=== PATIENT | male | born 1965 | race Caucasian/White ===

== ENCOUNTER → 2017-03-02 | Outpatient (CLI) | payer BC ==
--- NOTE | 2017-03-05 08:15 | MRI ---
HISTORY: Low back pain Study: MRI lumbar spine without contrast Comparison: None Technique: Multiplanar multi-sequence MRI of the lumbar spine was obtained. Sagittal T1, sagittal T 2, and stir weighted images, axial T1, and axial T2 images were obtained. Findings: The lumbar spine demonstrates normal alignment with the expected signal characteristics of the bone marrow. The conus of the cord terminates normally. T12 -- L1: No evidence for compressive disc disease. The neural foramina are patent. The joints are normal. L1 -- L2: No evidence for compressive disc disease. The neural foramina are patent. The joints are n ormal. L2 -- L3: No evidence for compressive disc disease. The neural foramina are patent. The joints are n ormal. L3 -- L4: No evidence for compressive disc disease. The neural foramina are patent. The joints are n ormal. L4 -- L5: There is broad-based disc protrusion which contributes to significant lateral recess and f oraminal narrowing bilaterally left worse than right. Mild facet arthropathy is present. L5 -- S1: There is mild desiccation of the disc with broad-based disc bulging which contributes to s ignificant lateral recess and foraminal narrowing on the left and mild lateral recess narrowing on t he right. IMPRESSION: As above Reported By:
== END | disposition home or self-care (01) ==
LOC: RAD 10:22
PROVIDERS: ATTEND Internal Medicine
DX: M79.604 Pain in right leg (principal); M51.26 Other intervertebral disc displacement, lumbar region
CPT/HCPCS: 72148

== ENCOUNTER → 2017-12-10 | Outpatient (CLI) | payer BC ==
[2017-12-10 08:41] LABS: CREATININE 0.9 mg/dL (0.70-1.30)
--- NOTE | 2017-12-10 09:21 | CT ---
Indication: Cough and tobacco abuse Exam: CT chest with contrast. Technique: Axial spiral images were obtained from the level above the clavicles through the adrenals after administration 100 cc Omnipaque 350. Automated dose control was utilized. Findings: The thyroid gland is mildly enlarged and heterogeneous with an 8 mm hypodensity in the left lobe posteriorly. The aorta and pulmonary arteries are well opacified and normal caliber with no mar ling defects. No aneurysm is seen. There is no mediastinal mass or adenopathy. The adrenals are jesus l. The visualized upper abdomen is unremarkable. There is a 9 mm subpleural nodule right lower lobe o n image 41 of series 6 . There is a 6 mm pleural-based nodule or scar just inferior to this area . Th ere is some hazy subpleural opacity along the right upper lobe posteriorly extending into the superio r segment right lower lobe . There are tiny 2 mm subpleural nodules or scar in the right middle lobe laterally. There is hazy ground-glass opacity along the left upper lobe posteriorly extending into th e superior segment left lower lobe. There is a 6 mm nodule along the superior segment left lower lobe and there is a 5 mm pleural-based nodule or scar along the left lung base laterally . There is a 3 m m nodule or scar along the diaphragm posteriorly . There is a 3 mm pleural-based nodule posteriorly i n the left lower lobe . There are moderate degenerative changes seen in the spine with no aggressive osseous lesion. Impression: Small pulmonary nodules scattered in both lungs with the largest seen in the right lower lobe measuri ng 9 mm. Suggest short-term follow-up or PET scan correlation. Hazy ground-glass opacities along the upper lobes extending into the superior segment of both lower l obes which could represent subpleural infiltrates vs scarring , suggest short-term follow-up. No mediastinal mass or adenopathy. Mild thyroid goiter with an 8 mm hypodensity on the left , suggest ultrasound follow-up. Reported By:
== END ==
LOC: RAD 08:10
PROVIDERS: ATTEND Internal Medicine
DX: R05 Cough (principal); F17.200 Nicotine dependence, unspecified, uncomplicated; R07.81 Pleurodynia; R06.02 Shortness of breath; R91.8 Other nonspecific abnormal finding of lung field
CPT/HCPCS: 36415; 71260; 82565; 84520; A4222